=== PATIENT | female | born 1995 | race Caucasian/White ===

== ENCOUNTER 2018-06-28 15:25 | Emergency (ER) | payer OTHER ==
[~2018-06-28] VITALS: Ht 167.6 cm; Wt 81.6 kg
--- NOTE | 2018-06-28 15:44 | NUR ---
PT IS IN ROOM #2B. DR INFANTE EVALUATED THE PT.
[2018-06-28] MEDS ORDERED: predniSONE 10 MG TABLET PO ONE (15:45)
[2018-06-28] MEDS ORDERED: EPINEPHRINE 1 MG/1 ML AMP SQ ONE (15:45)
[2018-06-28] MEDS ORDERED: FAMOTIDINE 20 MG TABLET PO ONE (15:45)
[2018-06-28] MEDS ORDERED: predniSONE 20 MG TABLET ONE (15:52)
[2018-06-28] MEDS ORDERED: FAMOTIDINE 20 MG TABLET ONE (15:53)
[2018-06-28] MEDS ORDERED: EPINEPHRINE 1 MG/1 ML AMP ONE (15:53)
[2018-06-28 16:49] VITALS: BP 140/75
--- NOTE | 2018-06-28 16:49 | NUR ---
Patient discharged to home in stable conditon. Written and verbal after care instructions given. Patient verbalizes understanding of instructions.
== END 2018-06-28 16:50 | disposition home or self-care (01) ==
LOC: ER 15:27
DX: T78.3XXA Angioneurotic edema, initial encounter (principal)
CPT/HCPCS: 96372; 99283; J0171; J7512; A4663